=== PATIENT | male | born 1980 ===

== ENCOUNTER 2020-08-26 11:40 | Emergency (ER) | payer SELFPAY ==
[~2020-08-26] VITALS: Ht 170.2 cm; Wt 74.0 kg
[2020-08-26 13:00] VITALS: BP 128/70
== END 2020-08-26 13:01 | disposition home or self-care (01) ==
LOC: ER 11:40
DX: J00 Acute nasopharyngitis [common cold] (principal); Z86.16 Personal history of COVID-19; Z87.898 Personal history of other specified conditions
CPT/HCPCS: 99283